=== PATIENT | male | born 1965 | race Hispanic/Latino ===

== ENCOUNTER 2016-10-31 10:11 | Emergency (ER) | payer OTHER ==
[~2016-10-31] VITALS: Ht 165.1 cm; Wt 84.1 kg
[2016-10-31 10:18] VITALS: BP 151/86; PULSE 63; RESP 18; O2SAT 99
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
[2016-10-31] MEDS ORDERED: ONDA8TAB7 PO (10:48)
[2016-10-31] MEDS ORDERED: IBUP-1827 PO (10:48)
[2016-10-31] MEDS ORDERED: Ondansetron 8 mg ODT Tablet PO ONE (10:50)
== END 2016-10-31 11:07 | disposition home or self-care (01) ==
LOC: SED 10:11
DX: S01.01XA Laceration without foreign body of scalp, initial encounter (principal); S06.0X0A Concussion without loss of consciousness, initial encounter; W00.0XXA Fall on same level due to ice and snow, initial encounter; Y92.9 Unspecified place or not applicable; Y93.89 Activity, other specified; Y99.8 Other external cause status; Z87.828 Personal history of other (healed) physical injury and trauma

== ENCOUNTER 2016-11-09 17:57 | Emergency (ER) | payer OTHER ==
[~2016-11-09 17:57] MED LIST: IBUP-1827 PO; ONDA8TAB7 PO
== END 2016-11-09 18:08 ==
LOC: SED 17:57
DX: Z48.02 Encounter for removal of sutures (principal)